=== PATIENT | female | born 1965 | race Caucasian/White ===

== ENCOUNTER 2024-04-27 08:23 | Day surgery (SDC) | payer BC ==
[~2024-04-27 08:23] MED LIST: ALPRAZolam 0.25 MG TAB PO PRN; ALPRAZolam 0.5 MG TAB PO PRN; HEPARIN SODIUM,PORCINE (1 ML) 2,500 UNIT in SODIUM CHLORIDE 0.9% 250 ML IRRIGATION PRN; HEPARIN SODIUM,PORCINE 10,000 UNIT in SODIUM CHLORIDE 0.9% 1,000 ML IRRIGATION PRN; NITROGLYCERIN SL TABS 0.4 MG TAB SUBLINGUAL PRN
[2024-04-27] MEDS: EMPTY BAG 1 BAG with SODIUM CHLORIDE 0.9% 1,000 ML IV SCH (09:11)
[2024-04-27] MEDS: ASPIRIN 325 MG TAB PO ONE (09:11)
[2024-04-27] MEDS: ATORVASTATIN 80 MG TAB PO ONE (09:11)
[2024-04-27 09:22] LABS: Basophils # (A) 0.1 k/uL (0-0.2); Basophils % (A) 1 %; Eosinophils # (A) 0.3 k/uL (0-0.7); Eosinophils % (A) 3 %; HCT 41.9 % (34.0-46.0); HGB 13.9 gm/dL (11.4-16.0); Lymphocytes # (A) 3.7 k/uL (1.0-4.8); Lymphocytes % (A) 35 %; MCH 32.1 pg (25.0-35.0); MCHC 33.2 g/dL (31.0-37.0); MCV 96.8 fL (80.0-100.0); Mean Platelet Volume 7.5; Monocytes # (A) 0.6 k/uL (0-1.0); Monocytes % (A) 6 %; Neutrophils # (A) 5.8 k/uL (1.3-7.7); Neutrophils % (A) 54 %; Platelet Count 269 k/uL (150-450); RBC 4.33 m/uL (3.80-5.40); RDW 13.7 % (11.5-15.5); WBC 10.6 k/uL (3.8-10.6)
[2024-04-27 09:35] LABS: African American GFR (CKD) >90 (>60 ml/min/1.73 sqM); Anion Gap 6 mmol/L; Blood Urea Nitrogen 17 mg/dL (7-17); Calcium 9.3 mg/dL (8.4-10.2); Carbon Dioxide 27 mmol/L (22-30); Chloride 109 mmol/L (98-107); Glucose 101 mg/dL (74-99); Non-African American GFR(CKD) 87 (>60 ml/min/1.73 sqM); Potassium 4.4 mmol/L (3.5-5.1); Sodium 142 mmol/L (137-145)
[2024-04-27] MEDS: MIDAZOLAM 2 MG/2 ML VIAL IVP ONE ×3 (11:10→13:02)
[2024-04-27] MEDS: fentaNYL (PF) 50 MCG/ML 2 ML AMP IVP ONE ×3 (11:10→12:16)
[2024-04-27] MEDS: LIDOCAINE 1% INJ 10MG/ML (20 ML MDV) SQ ONE (11:13)
[2024-04-27] MEDS: HEPARIN SODIUM 1,000 UN/ML (10ML VL) IVP ONE (11:19)
[2024-04-27] MEDS: SODIUM CHLORIDE 0.9% 1,000 ML IV ONE (11:25)
[2024-04-27] MEDS: HEPARIN SODIUM,PORCINE 10,000 UNIT in SODIUM CHLORIDE 0.9% 1,000 ML IRRIGATION ONE (11:26)
[2024-04-27] MEDS: HEPARIN SODIUM,PORCINE (1 ML) 2,500 UNIT in SODIUM CHLORIDE 0.9% 250 ML IRRIGATION ONE (11:26)
[2024-04-27] MEDS: TICAGRELOR 90 MG TAB PO ONE (11:51)
[2024-04-27] MEDS: IOPAMIDOL-370 100ML BTL INJ ONE ×2 (12:03→13:16)
[2024-04-27] MEDS: NITROGLYCERIN 1000MCG/10ML SYRINGE INTRACORON ONE (12:30)
[2024-04-27] MEDS ORDERED: ATROPINE SULFATE 0.1 MG/ML 10ML SYRINGE IV PRN (13:32)
[2024-04-27] MEDS ORDERED: MAG HYDROX/AL HYDROX/SIMETH 30 ML CUP PO PRN (13:32)
[2024-04-27] MEDS ORDERED: ZOLPIDEM 5 MG TAB PO PRN (13:32)
[2024-04-27] MEDS ORDERED: NITROGLYCERIN SL TABS 0.4 MG TAB SUBLINGUAL PRN (13:32)
[2024-04-27] MEDS ORDERED: RX INFO: IV CONTRAST WAS GIVEN 1 EACH MISC MISCELLANE PRN (13:32)
--- NOTE | 2024-04-27 13:41 | P.PCN ---
Date of Procedure: 04/27/24 Operative Findings: PERCUTANEOUS CORONARY INTERVENTION Performing physician Hong Aquino M.D. Procedure Performed: 1. Successful stenting of the proximal RCA using 3.5 x 23 mm Xience drug-eluting stent with an excellent angiographic results. 2. Adjunctive use of IVUS and lithotripsy balloon and Dobler wire 3. Selective left coronary angiogram 3. Ultrasound-guided access of the right common femoral artery and selective right common femoral artery angiogram Indication: Symptomatic 58-year-old female patient who underwent a heart catheterization recently at [facility] and that revealed intermediate disease involving the LCx. She was brought today to undergo Dobler wire measurement of the LCx and possible PCI of the LCx. Approach: Right common femoral Complications: None Level of Sedation: Moderate with a sedation length of 18 minutes Procedure Discussion: After obtaining informed consent the patient was brought to the cardiac [employer]. The right common femoral artery was cannulated using micropuncture technique under ultrasound guidance and the micropuncture wire passed easily then I placed a 6 Faroese sheath at the right common femoral artery. We decided to pursue with IFR of the LCx. After zeroing the Doppler wire and equalizing between the Doppler wire and guiding catheter the left main was engaged. Attempting advancing the Dobler wire to the LCx was unsuccessful because the LCx in the proximal portion was quite tortuous. I was able to straighten the artery using a whisper wire and subsequently I was able to advance the Dobler wire distal to the lesion in the proximal left circumflex coronary artery and subsequently the whisper wire was withdrawn out. I did an IFR of the LCx and that came in to be ischemic at 0.80. I did give the patient nitroglycerin as well and I repeated IFR and that continues to be ischemic. Because of that I decided to do PCI of the LCx. Please note that anticoagulation was initiated before we started doing the IFR of the LCx. That was performed using heparin with continuous ACT monitoring. Subsequently I did wire the first obtuse marginal branch just to protect the OM. Attempting advancing IVUS catheter was unsuccessful and the catheter would not cross the lesion in the proximal left circumflex. At the nose of the lesion the lesion appeared to be very calcified. The diameter was about 3.5 mm. That is just proximal to the lesion in the very proximal left circumflex coronary artery. Attempting advancing 3.0 noncompliant balloon was unsuccessful but I was able to advance 2.5 mm semicompliant balloon. Doing balloon angioplasty of the very proximal left circumflex showed the balloon was not fully inflated with a dog bone was noted concerning for the severe calcifications. After that I decided to advance lithotripsy balloon. Advancing 3.5 x 12 mm lithotripsy balloon also was unsuccessful in spite of using 2 wires but at that point I decided to use GuideLiner and with that being said I had to pull the wire from the first obtuse marginal branch outside the body completely. After that I advanced GuideLiner to the guiding catheter. With using GuideLiner and with difficulties I was able to advance the lithotripsy balloon to the very proximal left circumflex coronary artery what I did balloon angioplasty of the left circumflex and that was performed successfully. After that I was able to advance 3.5 x 23 mm stent where the stent was positioned under fluoroscopy guidance and deployed under fluoroscopy guidance. Postdilatation was performed after IVUS was performed. The IVUS showed that the midportion of the stent was not fully expanded and thickened oval-shaped. At that point I decided to do balloon angioplasty using 3.75 x 12 mm NC balloon and that was performed successfully as well. There was some pinching/spasm involving the ostial left circumflex coronary artery which was improved after pulling the wire out and giving the patient nitroglycerin. Final angiogram showed excellent angiographic results with [id number] flow was noted in the left circumflex and the patient was hemodynamically stable and was asymptomatic. The procedure was completed with no complication Postprocedure Management: 1. Aspirin and Brilinta for at least 6-month 2. Aggressive cholesterol control 3. Risk factors modification including smoking cessation
--- NOTE | 2024-04-27 13:48 | P.PCN ---
Date of Procedure: 04/27/24 Operative Findings: PERCUTANEOUS PERIPHERAL INTERVENTION Performing physician Hong Aquino M.D. Procedure performed 1. Successful stenting of the left external iliac artery using 6.0 x 40 mm self-expandable stent with an excellent angiographic results 2. Adjunctive use of IVUS catheter and gradient measurement as well 3. Distal aortic and bilateral iliac angiogram 4. Right common femoral artery angiogram Indication Symptomatic 58-year-old female patient who underwent an aortogram with runoff recently at [facility] and was found to have intermediate lesion involving the left external iliac artery. Because of that the patient was brought today for further evaluation. Please note that the patient underwent PCI of the LCx before the peripheral procedure. Please refer for the access description. Approach Right common femoral artery Complications None Level of sedation Moderate with a sedation time of 70 minutes Procedure description After PCI of the LCx was performed successfully we decided to pursue with further measurements/intervention of the left iliac artery. At that point the short sheath was exchanged over an 035 wire into a 55 cm Rabi sheath. Please note that anticoagulation continued using heparin with continuous ACT monitoring. After that we decided to start by doing an aortogram distally and bilateral iliac angiogram because the patient did not have good bilateral femoral pulses. That was performed using Omni Flush catheter which was advanced over a 035 wire to the aorta and it was positioned just above the bifurcation of the aorta into right and left common iliac arteries. The angiogram was performed using digital subtraction with bulbar injection. The angiogram showed intermediate disease involving the left iliac artery and also intermediate disease involving the right iliac artery and both external iliac arteries. Using the Omni Flush catheter I was able to advance my 035 wire to the left SFA under fluoroscopy guidance. 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 We were in process of doing IVUS of the left external iliac artery but with the dissection which was concerning and almost flow-limiting we decided to intervene on it. An IVUS was performed and showed that I was in the false lumen with large dissection and a diameter around 5 mm. I decided to cover that with a stent. I deployed a 6.0 x 40 mm self-expandable stent and that was Zilver PTX drug-coated stent where the stent was positioned under fluoroscopy guidance and deployed under fluoroscopy guidance with postdilatation was performed using 5 mm balloon. Final angiogram showed excellent angiographic results. After that I did a gradient measurement of the lesion in the right external iliac artery by doing pulling back of the sheath across the lesion and the peak to peak gradient came in to be around only 12 mmHg which is not hemodynamically significant and we decided not to intervene on the right external iliac artery. The procedure was completed with no complication. I did selective right common femoral artery angiogram after I exchanged my long sheath into 11 cm sheath using a 035 stiff Glidewire. The procedure was completed with no complication Postprocedure management 1. Dual antiplatelet therapy 2. Aggressive cholesterol control 3. Risk factors modification 4. Follow-up with the patient
--- NOTE | 2024-04-27 17:49 | IR ---
EXAMINATION TYPE: IR stent intravas non coronary DATE OF EXAM: 04/27/2024 FLUOROSCOPY left leg pain, 37.3min fluoro, 40.8Gycm2, 306 images submitted. [facility], , 04/27/2024 5:47 PM
[2024-04-27] MEDS: SODIUM CHLORIDE 0.9% 1,000 ML in EMPTY BAG 1 BAG IV SCH (18:11)
[2024-04-27] MEDS: TICAGRELOR 90 MG TAB PO SCH (20:31)
[2024-04-27] MEDS: ATORVASTATIN 40 MG TAB PO SCH (20:32)
--- NOTE | 2024-04-28 06:36 | P.DS ---
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 She is asymptomatic and hemodynamically stable. The right groin is soft and nontender with no bruises The patient is going to be discharged on dual antiplatelet therapy along with a statin and I will follow-up with the patient next week in the office Plan - Discharge Summary Discharge Rx Participant: No New Discharge Prescriptions: New Ticagrelor [Brilinta] 90 mg PO BID #180 tab Continue carvediloL [Coreg] 6.25 mg PO DAILY Rosuvastatin [Crestor] 20 mg PO HS EPINEPHrine (Auto Inject) [Epipen] 0.3 mg IM ONCE PRN PRN Reason: Anaphylaxis Aspirin [[place] Aspirin EC] 81 mg PO DAILY Discharge Medication List Aspirin [[place] Aspirin EC] 81 mg PO DAILY 04/26/24 [History] EPINEPHrine (Auto Inject) [Epipen] 0.3 mg IM ONCE PRN 04/26/24 [History] Rosuvastatin [Crestor] 20 mg PO HS 04/26/24 [History] carvediloL [Coreg] 6.25 mg PO DAILY 04/26/24 [History] Ticagrelor [Brilinta] 90 mg PO BID #180 tab 04/28/24 [Rx] Follow up Appointment(s)/Referral(s): Hong Aquino MD [STAFF PHYSICIAN] - 1 Week (OFFICE WILL CALL PATIENT WITH FOLLOW UP APPOINTMENT. )
[2024-04-28] MEDS: carvediloL 6.25 MG TAB PO SCH (07:39)
[2024-04-28] MEDS: ASPIRIN 81 MG PO SCH (07:40)
[2024-04-28 07:43] VITALS: BP 118/65; PULSE 80; RESP 17; TEMP 98.2
[2024-04-28 09:06] LABS: African American GFR (CKD) >90 (>60 ml/min/1.73 sqM); Non-African American GFR(CKD) 81 (>60 ml/min/1.73 sqM)
== END 2024-04-28 10:05 | disposition home health service (06) ==
LOC: CATHCVL 08:23 → 3SCARD 14:05 → CATHCVL 04-28 10:05
PROVIDERS: ATTEND Internal Medicine Interventional Cardiology
DX: I25.10 Atherosclerotic heart disease of native coronary artery without angina pectoris (principal); R07.89 Other chest pain; I10 Essential (primary) hypertension; E78.5 Hyperlipidemia, unspecified; Z87.891 Personal history of nicotine dependence; Z79.899 Other long term (current) drug therapy
CPT/HCPCS: 99152; 99153 ×4; 92978; 37221; 93799; 92972; 37252; 80048; 82565; 85025; C9600; C1894 ×3; C1769 ×6; C1887 ×2; C1725 ×3; C1753; C1874 ×2; C1761; J2250; J1644 ×3; J2003; J3010; Q9967; J2305